=== PATIENT | male | born 1970 | race Caucasian/White ===

== ENCOUNTER 2016-05-09 21:14 | Emergency (ER) | payer OTHER ==
[2016-05-09 21:19] VITALS: RESP 18
[2016-05-09] MEDS ORDERED: ONDANSETRON 4 MG/2 ML VIAL ONE (21:24)
[2016-05-09] MEDS ORDERED: HYDROmorphONE/DILAUDID 1 MG/ML SYR ONE (21:44)
[2016-05-09 21:45] LABS: % IMMATURE GRANULYOCYTES 0.5 % (0.0-1.1); ABSOLUTE IMMATURE GRANULOCYTES 0.06 10^3/uL (0.00-0.10); ADD DIFF? NO; ADD MORPH? NO; ADD SCAN? NO; ATYPICAL LYMPHOCYTE FLAG 10 (0-99); FRAGMENT RBC FLAG 0 (0-99); HEMATOCRIT 43.6 % (40.0-51.0); HEMOGLOBIN 15.4 g/dL (13.7-17.5); LEFT SHIFT FLG 0 (0-99); LIPEMIA HEMOLYSIS FLAG 90 (0-99); MEAN CELL HEMOGLOBIN 29.1 pg (27.9-34.1); MEAN CELL HEMOGLOBIN CONCENTR. 35.3 g/dL (32.4-36.7); MEAN CELL VOLUME 82.3 fL (81.5-99.8); MEAN PLATELET VOLUME 9.4 fL (8.7-11.7); PLATELET CLUMPS FLAG 30 (0-99); PLATELET COUNT 230 10^3/uL (150-400); RED CELL DISTRIBUTION WIDTH 12.9 % (11.5-15.2)
--- NOTE | 2016-05-09 21:48 | EDPHY ---
H & P Time Seen by Provider: 05/09/16 21:22 HPI/ROS: CHIEF COMPLAINT: Abdominal pain HISTORY OF PRESENT ILLNESS: 45-year-old male presents to the emergency department with sudden onset of severe lower abdominal pain that began approximately 30 minutes prior to arrival. The patient states that he was just sitting at home and developed pain in his lower abdomen. He denies any known trauma or injury. Denies nausea or vomiting. Denies chest pain or difficulty breathing. He does report that he felt extremely diaphoretic and felt like he was going to pass out shortly after the pain started. He does not feel that now. He denies neck or back pain. He denies chest pain or difficulty breathing now. He is having trouble getting comfortable. No urinary symptoms. Had a bowel movement prior to coming to the hospital. No blood in his stool. No diarrhea. No reported trauma. No history of kidney stones. REVIEW OF SYSTEMS: Constitutional: No fever, no chills. Eyes: No double or blurry vision. ENT: No sore throat. Respiratory: No cough, no shortness of breath. Cardiac: No chest pain. Gastrointestinal: Abdominal pain as above. No vomiting or diarrhea. Genitourinary: No dysuria. Musculoskeletal: No neck or back pain. Skin: No rashes. Neurological: No headache. (MaeNereida henao) Past Medical/Surgical History: Negative (GiovanniNereida M) Social History: (Nereida Davila) Physical Exam: General Appearance: Alert, moderate distress. Appears very uncomfortable. at bedside. Eyes: Pupils equal and round. Extraocular motions are all intact. ENT: Mouth: Mucous membranes moist. Respiratory: No wheezing, rhonchi, or rales, lungs are clear to auscultation. Cardiovascular: Regular rate and rhythm. Gastrointestinal: Abdomen is soft. Mild tenderness with palpation in the lower left and lower right quadrant. Mild suprapubic tenderness as well. No rebound, guarding or masses noted. No CVA tenderness bilaterally. Neurological: Alert and oriented x 3, cranial nerves II through XII grossly intact Skin: Warm and dry, no rashes. Musculoskeletal: Nontender to palpate along the cervical, thoracic or lumbar spine. Neck is supple. Extremities: Full range of motion and no peripheral edema. Psychiatric: Patient is oriented X 3, there is no agitation. (Nereida Davila) Constitutional: Initial Vital Signs Heart Rate 62 05/09/16 21:17 Respiratory Rate 18 05/09/16 21:17 Blood Pressure 149/73 H 05/09/16 21:17 O2 Sat (%) 99 05/09/16 21:17 O2 Delivery Mode Room Air Allergies/Adverse Reactions: No Known Allergies Allergy (Verified 05/09/16 21:33) Home Medications: Medication Instructions Recorded Dicyclomine [Bentyl] 20 mg PO QID #5 tab 05/10/16 Medical Decision Making - Diagnostics Imaging: CT imaging of the abdomen pelvis reveals moderate amount of stool consistent with constipation. Normal appearing appendix. No evidence of colitis or kidney stone or bowel obstruction. This was reported to me by Dr. Soni. ( Nereida Davila) ED Course/Re-evaluation: The case was discussed with Dr. Genesis Hu, secondary supervising physician, who also evaluated the patient and agrees with CT imaging of the abdomen and pelvis. 45-year-old male with severe abdominal pain. IV was established and laboratory studies are pending. Patient was given IV morphine with mild relief. He was also given IV Dilaudid and IV normal saline. Patient was feeling much better after pain medication. CT imaging of the abdomen and pelvis reveals normal appearing appendix. No evidence of bowel obstruction or kidney stone. Constipation was noted. Findings on CT scan were discussed with the patient. He was given oral Bentyl and magnesium citrate. He was advised to return if he developed recurring abdominal pain, vomiting, altered mental status, fevers or if he felt worse in any way. Upon discharge at 12:30 a.m., patient was much more comfortable. He has not had any narcotics in over 1 hour. His is comfortable taking him home. ( Nereida Davila) Differential Diagnosis: Including but not limited to acute appendicitis, bowel obstruction, kidney stone , volvulus, constipation, colitis (Nereida Davila) Other Provider: This patient was evaluated and managed in conjunction with the physician urgent care physician assistant. He is a healthy 45 year old male with the acute onset of bilateral lower abdominal severe pain [employer]. The pain was associated with diaphoresis. No vomiting or diarrhea. No urinary symptoms. No fever. He has not recently been ill. On exam his lungs are clear, heart has RRR and no murmur, abdomen is soft with lower abdominal pain on both sides and in the suprapubic region--no guarding. Bowel sounds are present. He is alert and cooperative. Vital signs reviewed. CT scan completed after end of my shift and report reviewed by me--no appendicitis, SBO, or other surgical or life threatening pathology noted. Evidence of constipation. I have reviewed the chart and agree with the plan of care as documented. I am the secondary supervising physician. (Genesis Hu) - Data Points Laboratory Results: Laboratory Results 05/09/16 21:30 05/09/16 21:30 Medications Given: Discontinued Medications Dicyclomine HCl (Bentyl) 20 mg PO EDNOW ONE Stop: 05/10/16 00:16 Last Admin: 05/10/16 00:36 Dose: 20 mg Diphenhydramine HCl (Benadryl Injection) 25 mg IVP EDNOW ONE Stop: 05/09/16 22:11 Last Admin: 05/09/16 22:10 Dose: 25 mg Hydromorphone HCl (Dilaudid) 1 mg IVP EDNOW ONE Stop: 05/09/16 21:50 Last Admin: 05/09/16 21:51 Dose: 1 mg Sodium Chloride (Ns) 1,000 mls @ 0 mls/hr IV ONCE ONE PRN Reason: Wide Open Stop: 05/09/16 21:50 Last Admin: 05/09/16 21:51 Dose: 1,000 mls Magnesium Citrate (Magnesium Citrate) 300 ml PO ONCE ONE Stop: 05/10/16 00:16 Last Admin: 05/10/16 00:22 Dose: 300 ml Morphine Sulfate (Morphine) 6 mg IVP EDNOW ONE Stop: 05/09/16 21:51 Last Admin: 05/09/16 21:52 Dose: 6 mg Ondansetron HCl (Zofran) 4 mg IVP EDNOW ONE Stop: 05/09/16 21:51 Last Admin: 05/09/16 21:52 Dose: 4 mg Departure - Departure Disposition: Home, Routine, Self-Care Clinical Impression: Abdominal pain Condition: Good Instructions: Constipation (ED), High Fiber Diet (ED), Abdominal Pain (ED) Additional Instructions: Abdominal Pain: Return to the Emergency Department immediately for increasing pain, fever, vomiting, or if not completely better in 8-12 hours. Referrals: Lizbeth Yang MD [Medical Doctor] - As per Instructions Prescriptions: Dicyclomine [Bentyl] 20 mg PO QID #5 tab
[2016-05-09] MEDS ORDERED: HYDROmorphONE/DILAUDID 1 MG/ML SYR IVP ONE (21:49)
[2016-05-09] MEDS ORDERED: NS 1,000 ML IV ONE (21:49)
[2016-05-09] MEDS ORDERED: ONDANSETRON 4 MG/2 ML VIAL IVP ONE (21:50)
[2016-05-09 21:53] VITALS: TEMP 98.1
[2016-05-09 22:13] LABS: ANION GAP 17 mEq/L (8-16); CALCIUM 9.8 mg/dL (8.5-10.4); CARBON DIOXIDE 24 mEq/l (22-31); CHLORIDE 101 mEq/L (97-110); GLOMERULAR FILTRATION RATE > 60; GLUCOSE 111 mg/dL (70-100); POTASSIUM 3.3 mEq/L (3.5-5.2); SODIUM 142 mEq/L (134-144)
[2016-05-09] MEDS ORDERED: IOPAMIDOL (ISOVUE-300) 100 ML BTL IV ONE ×2 (23:08→23:30)
[2016-05-10] MEDS ORDERED: DICYCLOMINE 20 MG TAB PO ONE (00:15)
[2016-05-10] MEDS ORDERED: MAGNESIUM CITRATE 300 ML BOTTLE PO ONE (00:15)
[2016-05-10 00:38] VITALS: BP 133/65; PULSE 73; O2SAT 92
== END 2016-05-10 00:43 | disposition home or self-care (01) ==
DX: R10.31 Right lower quadrant pain (principal); R10.32 Left lower quadrant pain
CPT/HCPCS: 96374; J1170; J1200; J2405; Q9967